=== PATIENT | female | born 1975 ===

== ENCOUNTER 2020-02-10 16:42 | Emergency (ER) | payer BC ==
[2020-02-10 16:48] VITALS: BP 114/75; PULSE 93; RESP 20; TEMP 97.9
[2020-02-10] MEDS ORDERED: LORazepam 1 MG TAB PO STA (17:43)
[2020-02-10] MEDS ORDERED: ACETAMINOPHEN TAB 325 MG TAB PO STA (17:43)
--- NOTE | 2020-02-10 17:49 | ED ---
General Adult HPI - General Chief complaint: Nausea/Vomiting/Diarrhea Stated complaint: nausea, vomiting Time Seen by Provider: 02/10/20 16:53 Source: patient, EMS, RN notes reviewed, old records reviewed Mode of arrival: EMS Limitations: no limitations - History of Present Illness Initial comments: 44-year-old female patient to ED. Patient reports that she was very anxious about work today. He reports when she gets very anxious she starts breathing quickly she felt nauseous and threw up. She then called EMS. Upon arrival to Hospital her symptoms have resolved. She denies any other acute complaints. Denies any suicidal or homicidal ideations. Systemic: Pt denies fatigue, fever/chills, rash. Pt denies weakness, night sweats, weight loss. Neuro: Pt denies headache, visual disturbances, syncope or pre-syncope. HEENT: Pt denies ocular discharge or irritation, otalgia, rhinorrhea, pharyngitis or notable lymphadenopathy. Cardiopulmonary: Pt denies chest pain, SOB, heart palpitations, dyspnea on exertion. Abdominal/GI: Pt denies abdominal pain. : Pt denies dysuria, burning w/ urination, frequency/urgency. Denies new onset urinary or bowel incontinence. MSK: Pt denies myalgia, loss of strength or function in extremities. Neuro: Pt denies new onset weakness, paresthesias. Review of Systems ROS Statement: Those systems with pertinent positive or pertinent negative responses have been documented in the HPI. ROS Other: All systems not noted in ROS Statement are negative. Past Medical History Past Medical History: No Reported History History of Any Multi-Drug Resistant Organisms: None Reported Past Surgical History: No Surgical Hx Reported Past Psychological History: No Psychological Hx Reported Smoking Status: Current every day smoker Past Alcohol Use History: Occasional Past Drug Use History: None Reported General Exam - General Exam Comments Initial Comments: Constitutional: NAD, AOX3, Pt has pleasant affect. HEENT: NC/AT, trachea midline, neck supple, no lymphadenopathy. External ears appear normal, without discharge. Mucous membranes moist. Eyes PERRLA, EOM intact. There is no scleral icterus. No pallor noted. Cardiopulmonary: RRR, no murmurs, rubs or gallops, no JVD noted. Lungs CTAB in anterior and posterior alfaro. No peripheral edema. Abdominal exam: Abdomen soft and non-distended. Abdomen non-tender to palpation in all 4 quadrants. Bowel sounds active in LLQ. No hepatosplenomegaly. No ecchymosis Neuro: CN II-XII intact. No nuchal rigidity. No raccon eyes, no garcia sign, no hemotympanum. No cervical spinal tenderness. MSK: No posterior calf tenderness bilaterally, homans sign negative bilaterally. Posterior tibialis and radial pulse +2 bilaterally. Sensation intact in upper and lower extremities. Full active ROM in upper and lower extremities, 5/5 stregnth. Limitations: no limitations Course Vital Signs 02/10/20 16:44 Temperature 97.9 F Pulse Rate 93 Respiratory 20 Rate Blood Pressure 114/75 O2 Sat by Pulse 100 Oximetry Medical Decision Making - Medical Decision Making 44-year-old female patient to ED for evaluation. Before that she felt very anxious and called emergency services. Patient vital signs are stable, afebrile. Physical exam is negative for acute pathology. I did recommend workup including laboratory investigations x-ray, EKG. Patient is declining all of this. She states that she just wants to go home. An repeat evaluation patient reports that she would like some Tylenol for a very mild generalized headache. She is continuing to deny any further investigations. is in room with patient. I offered to provide psychiatric follow up, she would prefer to follow up with PCP. Patient will be discharged outpatient follow-up and return precautions. Case discussed with Dr. Warren. Disposition Clinical Impression: Anxiety Disposition: HOME SELF-CARE Condition: Stable Instructions (If sedation given, give patient instructions): Anxiety (ED) Additional Instructions: Follow up with PCP tomorrow. Return to ED with any worsening symptoms. Take the anxiety medication as needed, use only half of a pill. May take it up to every 12 hours. Is patient prescribed a controlled substance at d/c from ED?: No Referrals: Maria Guadalupe Kramer MD [Primary Care Provider] - 1-2 days
== END 2020-02-10 18:30 | disposition home or self-care (01) ==
LOC: EC 16:42
DX: F41.9 Anxiety disorder, unspecified (principal); R51.9 Headache, unspecified; R11.0 Nausea; F17.200 Nicotine dependence, unspecified, uncomplicated
CPT/HCPCS: 99284

== ENCOUNTER → 2021-06-03 | Outpatient (CLI) | payer BC ==
--- NOTE | 2021-06-04 10:59 | MM ---
Reason for exam: screening (asymptomatic). Physical Findings: A clinical breast exam by your physician is recommended on an annual basis and results should be correlated with mammographic findings. MG 3D Screening Mammo W/Cad Bilateral CC, MLO, and XCCL view(s) were taken. No prior studies available for comparison. The breast tissue is heterogeneously dense. This may lower the sensitivity of mammography. There is no discrete abnormality. ASSESSMENT: Benign, BI-RAD 2 RECOMMENDATION: Routine screening mammogram of both breasts in 1 year.
== END | disposition home or self-care (01) ==
LOC: RADMAMWWP 11:06
PROVIDERS: ATTEND Obstetrics & Gynecology Obstetrics
DX: Z12.31 Encounter for screening mammogram for malignant neoplasm of breast (principal)
CPT/HCPCS: 77063; 77067

== ENCOUNTER → 2023-03-23 | Outpatient (CLI) | payer BC ==
--- NOTE | 2023-03-23 13:35 | MM ---
Reason for Exam: Clinical finding. Last mammogram was performed 1 year(s) and 9 month(s) ago. Indicated Problems: Lump or thickening of the right side. Patient History: Menarche at age 13. First Full-Term at age 23. Last menstrual period: 03/23/2023 Risk Values: Beatris 5 year model risk: 0.8%. NCI Lifetime model risk: 9.4%. Tissue Density: The breast tissue is heterogeneously dense. This may lower the sensitivity of mammography. Findings: Analyzed By CAD. Multiple underlying areas of nodularity on the right measuring up to 1 cm. This has fluctuated compared to the prior study. Further ultrasound evaluation is recommended. Palpable marker far posterior inferior aspect of the right breast. On the left, areas of asymmetric density approximately 11:00 and also in the upper outer quadrant appear more defined and incompletely dispersed on additional views. No suspicious calcifications or other discrete abnormality is seen. Overall Assessment: Incomplete: need additional imaging evaluation, BI-RAD 0 Management: Diagnostic Breast Ultrasound of both breasts. Whole right breast including the patient's palpable site. On the left, scan 11-2 o'clock. Electronically signed and approved by: Herrera Bazan M.D. Radiologist
--- NOTE | 2023-03-23 14:39 | USB ---
Reason for Exam: Additional evaluation requested from abnormal screening. Patient History: Menarche at age 13. First Full-Term at age 23. Risk Values: Beatris 5 year model risk: 0.8%. NCI Lifetime model risk: 9.4%. Technique: Method: Targeted. Prior Study Comparison: 06/03/2021 Bilateral Screening Mammogram, [facility]. Findings: The whole breast of the right breast, the upper section of the breast of the left breast, the axilla of both breasts and the retroareolar of both breasts were scanned. Whole right breast ultrasound including the subareolar region and axilla. * At the 12:00 position, 2 cm from the nipple, complex cyst versus cystic cluster measuring 7 x 4 x 3 mm. * At the 3:00 position, 5 cm from the nipple, complex cyst versus cyst cluster measuring 8 x 4 x 3 mm. * At the 8:00 position, 5 cm from the nipple, a complex cyst versus cyst cluster measuring 5 x 5 x 3 mm. * Prominent but nonenlarged lymph node in the right axilla. * No discrete abnormality at the patient's 6:00 palpable site. Targeted left breast ultrasound 11:00 to 2:00 including the subareolar region and axilla. * At the 11:00 position, 5 cm from the nipple, complex cyst versus cyst cluster measuring 9 x 8 x 4 mm, possible mammographic correlate. * At 11:00, 4 cm from the nipple, there is a 6 mm cyst. * At 1:00, 7 cm from the nipple, hypoechoic, probable refilled cyst measuring 8 x 5 x 4 mm. * Prominent but nonenlarged lymph node in the axilla showing uniform cortex. Overall Assessment: Probably benign, BI-RAD 3 Management: Diagnostic Mammogram of both breasts in 6 months. Multiple underlying cyst clusters, less likely complex cysts. No imaging correlate to the patient's right breast 6:00 palpable site. Further clinical management of any suspicious palpable areas. This exam should not preclude additional follow-up of suspicious palpable abnormalities. Results were given to the patient verbally at the time of exam. Electronically signed and approved by: Herrera Bazan M.D. Radiologist
== END | disposition home or self-care (01) ==
LOC: RADMAMWWP 12:43
PROVIDERS: ATTEND Internal Medicine
DX: N60.11 Diffuse cystic mastopathy of right breast (principal); N60.12 Diffuse cystic mastopathy of left breast; R92.333 Mammographic heterogeneous density, bilateral breasts
CPT/HCPCS: 77062; 77066